=== PATIENT | male | born 1940 | race Caucasian/White ===

== ENCOUNTER 2018-08-16 15:09 | Outpatient (CLI) | payer MEDICARE | END 2018-08-16 15:10 | disposition home or self-care (01) | LOC: C.RADIC 15:09 | DX: M54.16 Radiculopathy, lumbar region (principal) ==

== ENCOUNTER 2018-09-22 09:19 | Outpatient (CLI) | payer MEDICARE | END 2018-09-22 09:20 | disposition home or self-care (01) | LOC: C.MRIC 09:19 | DX: M54.5 Low back pain (principal) ==